=== PATIENT | female | born 1935 | race Asian ===

== ENCOUNTER 2018-06-04 00:15 | Observation (INO) | payer MEDICARE, OTHER ==
[2018-06-04 02:36] LABS: ADD MAN DIFF? NO
[2018-06-04 02:39] LABS: ABNORMAL IP MESSAGE 1; BASOPHILS % 0.3 % (0.0-2.0); EOSINOPHILS # 0.2 10^3/ul (0.0-0.5); EOSINOPHILS % 5.3 % (0.0-7.0); HEMATOCRIT 34.4 % (37.0-47.0); HEMOGLOBIN 11.7 g/dl (12.0-16.0); LYMPHOCYTES # 0.7 10^3/ul (0.8-2.9); LYMPHOCYTES % 24.4 % (15.0-51.0); MEAN CORPUSCULAR HEMOGLOBIN 31.1 pg (29.0-33.0); MEAN CORPUSCULAR VOLUME 91.5 fl (82.0-101.0); MEAN PLATELET VOLUME 11.5 fl (7.4-10.4); MONOCYTE # 0.3 10^3/ul (0.3-0.9); MONOCYTES % 10.9 % (0.0-11.0); NEUTROPHIL # 1.8 10^3/ul (1.6-7.5); NEUTROPHILS % 58.8 % (39.0-77.0); PLATELET COUNT 81 10^3/UL (140-415); RED BLOOD COUNT 3.76 10^6/ul (4.20-5.40); RED CELL DISTRIBUTION WIDTH 13.6 % (11.5-14.5)
[2018-06-04 02:44] LABS: POSITIVE DIFF @See below
[2018-06-04 02:57] LABS: BLOOD UREA NITROGEN 16 mg/dl (7-20); CALCIUM 9.1 mg/dl (8.4-10.2); CARBON DIOXIDE 28 mmol/L (21-31); CREATININE 0.81 mg/dl (0.44-1.00); GLUCOSE 109 mg/dl (70-220); INR 1.02; POTASSIUM 3.6 mmol/L (3.5-5.1); PROTIME 13.5 Sec (11.9-14.9); PT RATIO 1.1; SODIUM 145 mmol/L (135-144)
[2018-06-04 03:09] LABS: B-TYPE NATRIURETIC PEPTIDE 419 PG/ML (0-450); TROPONIN-I < 0.012 ng/ml (0.000-0.120)
[2018-06-04 03:16] LABS: ANION GAP 12 (8-16); CHLORIDE 109 mmol/L (97-110)
[2018-06-04] MEDS ORDERED: ACETAMINOPHEN 325 MG TAB PO (04:00)
[2018-06-04] MEDS ORDERED: ONDANSETRON 4 MG INJ IV ×2 (04:00→04:30)
[2018-06-04] MEDS ORDERED: HYDROmorphONE 0.5 MG/0.5 ML SYG IV (04:30)
[2018-06-04] MEDS ORDERED: NACL 0.9% 3 ML SYG IV (04:30)
[2018-06-04] MEDS ORDERED: NITROGLYCERIN (SL) 0.4 MG TAB SL (04:30)
[2018-06-04] MEDS: LISINOPRIL 20 MG TAB PO ×2 (04:47→09:00)
[2018-06-04] MEDS: AMLODIPINE 10 MG TAB PO ×2 (04:48→09:00)
[2018-06-04] MEDS: hydrALAzine 20 MG INJ IV (05:37)
[2018-06-04 06:47] LABS: CHOL/HDL RATIO 3.1 RATIO; CHOLESTEROL 138 mg/dl (100-200); HDL CHOLESTEROL 44 mg/dl (33-92); LDL CHOLESTEROL,CALCULATED 82 mg/dl; TRIGLYCERIDES 59 mg/dl (0-149)
[2018-06-04 06:47] LABS: MAGNESIUM 2.2 mg/dl (1.7-2.5)
[2018-06-04 07:05] LABS: HEMOGLOBIN A1C 5.3 % (0-5.9)
[2018-06-04 07:13] LABS: HEPATITIS B SURFACE ANTIGEN NEGATIVE (NEGATIVE)
[2018-06-04 07:30] LABS: HEPATITIS C VIRAL ANTIBODY NEGATIVE (NEGATIVE)
[2018-06-04 07:31] LABS: HEPATITIS B SURFACE ANTIBODY INDETERMINATE (NEGATIVE)
[2018-06-04] MEDS: LIDOCAINE/MYLANTA 40 ML BTL PO (07:47)
[2018-06-04 08:28] LABS: IRON 65 ug/dl (35-150)
[2018-06-04 08:30] LABS: CREATINE KINASE 35 IU/L (23-200)
[2018-06-04 08:33] LABS: D-DIMER 885.28 ng/ml (<460)
[2018-06-04 08:38] LABS: % IRON SATURATION 24 % SAT (22-52); TOTAL IRON BINDING CAPACITY 268 ug/dl (241-421)
[2018-06-04 08:42] LABS: CK-MB 0.35 ng/ml (0.0-2.4); TROPONIN-I 0.013 ng/ml (0.000-0.120)
[2018-06-04] MEDS ORDERED: [UNRECOGNIZED DRUG - OTHER] PO (09:00)
[2018-06-04] MEDS ORDERED: AMLODIPINE 10 MG TAB PO (09:00)
[2018-06-04] MEDS ORDERED: LISINOPRIL 20 MG TAB PO (09:00)
[2018-06-04] MEDS: FERROUS SULFATE (EC) 325 MG TAB PO (10:23)
[2018-06-04] MEDS: TENOFOVIR 300 MG TAB PO (10:23)
[2018-06-04] MEDS: ERGOCALCIFEROL 50,000 UNIT CAP PO (10:23)
[2018-06-04 13:36] LABS: FREE T4 (FREE THYROXINE) 1.44 ng/dl (0.85-1.93)
[2018-06-04 14:54] LABS: CREATINE KINASE 36 IU/L (23-200)
[2018-06-04 15:07] LABS: CK INDEX 0.8; CK-MB 0.27 ng/ml (0.0-2.4); TROPONIN-I < 0.012 ng/ml (0.000-0.120)
[2018-06-04] MEDS: IOHEXOL 100 ML (21:36)
[2018-06-04] MEDS: SOD CHLORIDE 0.9% 100 ML (21:36)
[2018-06-05 05:35] LABS: ADD MAN DIFF? NO
[2018-06-05 05:39] LABS: WHITE BLOOD COUNT 3.7 10^3/ul (4.8-10.8)
[2018-06-05 05:39] LABS: ABNORMAL IP MESSAGE 1; BASOPHILS % 0.5 % (0.0-2.0); EOSINOPHILS # 0.2 10^3/ul (0.0-0.5); EOSINOPHILS % 4.8 % (0.0-7.0); HEMATOCRIT 35.1 % (37.0-47.0); HEMOGLOBIN 12.1 g/dl (12.0-16.0); LYMPHOCYTES # 0.9 10^3/ul (0.8-2.9); LYMPHOCYTES % 23.1 % (15.0-51.0); MEAN CORPUSCULAR HEMOGLOBIN 31.6 pg (29.0-33.0); MEAN CORPUSCULAR HGB CONC 34.5 g/dl (32.0-37.0); MEAN CORPUSCULAR VOLUME 91.6 fl (82.0-101.0); MEAN PLATELET VOLUME 11.1 fl (7.4-10.4); MONOCYTE # 0.4 10^3/ul (0.3-0.9); MONOCYTES % 10.5 % (0.0-11.0); NEUTROPHIL # 2.3 10^3/ul (1.6-7.5); NEUTROPHILS % 61.1 % (39.0-77.0); PLATELET COUNT 91 10^3/UL (140-415); RED BLOOD COUNT 3.83 10^6/ul (4.20-5.40)
[2018-06-05 05:41] LABS: POSITIVE DIFF @See below
[2018-06-05 05:57] LABS: ALBUMIN 3.9 g/dl (3.3-4.9); ALKALINE PHOSPHATASE 59 IU/L (42-121); ANION GAP 12 (8-16); ASPARTATE AMINO TRANSFERASE 22 IU/L (15-46); BILIRUBIN,INDIRECT 1.1 mg/dl (0-1.1); BILIRUBIN,TOTAL 1.1 mg/dl (0.2-1.3); BLOOD UREA NITROGEN 14 mg/dl (7-20); CALCIUM 9.3 mg/dl (8.4-10.2); CARBON DIOXIDE 28 mmol/L (21-31); CHLORIDE 112 mmol/L (97-110); CREATININE 0.77 mg/dl (0.44-1.00); GLUCOSE 111 mg/dl (70-220); POTASSIUM 4.6 mmol/L (3.5-5.1); SODIUM 147 mmol/L (135-144); TOTAL PROTEIN 6.9 g/dl (6.1-8.1)
[2018-06-05 06:33] LABS: PHOSPHORUS 3.7 mg/dl (2.5-4.9)
[2018-06-05 06:34] LABS: MAGNESIUM 2.6 mg/dl (1.7-2.5)
[2018-06-05] MEDS: ACETAMINOPHEN 325 MG TAB PO (06:44)
[2018-06-05 07:22] LABS: ALANINE AMINOTRANSFERASE 27 IU/L (13-69)
[2018-06-05] MEDS: FISH OIL 1,000 MG CAP PO (08:44)
[2018-06-05] MEDS: MULTIVIT/CA CARB/B CMPLX/FA TAB PO (08:44)
[2018-06-05] MEDS: FERROUS SULFATE (EC) 325 MG TAB PO (08:44)
[2018-06-05] MEDS: PANTOPRAZOLE SODIUM 20 MG TABEC PO (08:44)
[2018-06-05] MEDS: LISINOPRIL 20 MG TAB PO (08:44)
[2018-06-05] MEDS: TENOFOVIR 300 MG TAB PO (08:44)
[2018-06-05] MEDS: AMLODIPINE 10 MG TAB PO (08:45)
== END 2018-06-05 13:30 | disposition home or self-care (01) ==
LOC: E/R 00:15 → TEL 03:42
DX: R07.89 Other chest pain (principal); I10 Essential (primary) hypertension; Z95.0 Presence of cardiac pacemaker; I49.5 Sick sinus syndrome; D61.818 Other pancytopenia; B19.20 Unspecified viral hepatitis C without hepatic coma
CPT/HCPCS: 36415; 71045; 71275; 80048; 80053; 80061; 82550; 82553; 82728; 83036; 83540; 83735; 83880; 84100; 84439; 84443; 84484; 85025; 85378; 85610; 86706; 86709; 86803; 87081; 87340; 93005; 93306; 93970; 99217; 99285-25; G0378